=== PATIENT | male | born 1970 | race Caucasian/White ===

== ENCOUNTER 2020-09-24 14:14 | Emergency (ER) | payer OTHER ==
[~2020-09-24 14:14] MED LIST: AMOXICILLIN875 MG PO; BACTRIM DS TAB1 EACH PO; IBUPROFEN800 MG PO; MEDROL 4MG DOSEP4 MG PO; NORCO 5-325 TA1 EACH PO
[2020-09-24 16:04] LABS: HCT 47.9 % (42.0-52.0); HGB 16.7 g/dl (13.2-18.0); LYMPHOCYTE 25.9 % (15-48); MCH 33.5 pg (25.0-31.0); MCHC 34.9 g/dL (32.0-36.0); MONOCYTE 7.6 % (0-12); MPV 9.5 fL (6.0-9.5); NRBC 0; PLT 252 K/uL (150-400); RBC 4.99 M/uL (4.70-6.00); RDW 13.3 % (11.5-14.0); WBC 8.6 K/uL (4.0-10.5)
[2020-09-24 16:14] LABS: BUN/CREAT RATIO (CALC) 12.4 RATIO; CREATININE 0.89 mg/dL (0.67-1.17); POTASSIUM 3.8 mmol/L (3.5-5.1)
[2020-09-24 16:42] LABS: CORONAVIRUS 2019 SARS-COV-2 NEGATIVE (NEGATIVE); INFLUENZA A NAA NEGATIVE (NEGATIVE)
[2020-09-24] MEDS ORDERED: VENTOLIN HFA IN18 GM INH (17:54)
== END 2020-09-24 18:10 | disposition home or self-care (01) ==
LOC: FER 14:14
PROVIDERS: Emergency Medicine; Nurse Practitioner Family
DX: J20.9 Acute bronchitis, unspecified (principal); R03.0 Elevated blood-pressure reading, without diagnosis of hypertension; F17.210 Nicotine dependence, cigarettes, uncomplicated; Z86.14 Personal history of Methicillin resistant Staphylococcus aureus infection; Z20.822 Contact with and (suspected) exposure to COVID-19
CPT/HCPCS: 36415; 71046; 80048; 85025; 85379; J2930; U0002

== ENCOUNTER 2021-01-11 19:26 | Emergency (ER) | payer OTHER ==
[~2021-01-11 19:26] MED LIST changes: +VENTOLIN HFA IN18 GM INH
[2021-01-11] MEDS ORDERED: PERCOCET 5-3251 EACH PO (21:05)
[2021-01-11] MEDS ORDERED: BACITRACIN15 GM TOP (21:06)
== END 2021-01-11 21:18 | disposition home or self-care (01) ==
LOC: FER 19:26
DX: T22.132A Burn of first degree of left upper arm, initial encounter (principal); T22.131A Burn of first degree of right upper arm, initial encounter; T21.11XA Burn of first degree of chest wall, initial encounter; T20.10XA Burn of first degree of head, face, and neck, unspecified site, initial encounter; T31.0 Burns involving less than 10% of body surface; X04.XXXA Exposure to ignition of highly flammable material, initial encounter
CPT/HCPCS: J1170; J7030

== ENCOUNTER 2022-01-13 14:26 | Emergency (ER) | payer OTHER ==
[~2022-01-13 14:26] MED LIST changes: +BACITRACIN15 GM TOP; +PERCOCET 5-3251 EACH PO
[2022-01-13] MEDS ORDERED: BACLOFEN 10MG T10 MG PO (16:26)
[2022-01-13] MEDS ORDERED: NAPROXEN500 MG PO (16:26)
== END 2022-01-13 16:32 | disposition home or self-care (01) ==
LOC: FER 14:26
DX: S80.02XA Contusion of left knee, initial encounter (principal); S80.01XA Contusion of right knee, initial encounter; S10.83XA Contusion of other specified part of neck, initial encounter; S09.90XA Unspecified injury of head, initial encounter; M54.50 Low back pain, unspecified; F17.210 Nicotine dependence, cigarettes, uncomplicated; Z28.310 Unvaccinated for COVID-19; W20.8XXA Other cause of strike by thrown, projected or falling object, initial encounter; Y92.89 Other specified places as the place of occurrence of the external cause; Y99.0 Civilian activity done for income or pay
CPT/HCPCS: 70450; 72125; 72131; 73560; 96372; J1100; J1885